=== PATIENT | female | born 1985 | race Caucasian/White ===

== ENCOUNTER 2022-09-29 11:24 | Emergency (ER) | payer OTHER ==
[~2022-09-29] VITALS: Ht 167.6 cm; Wt 97.5 kg
[2022-09-29] MEDS ORDERED: IBUPROFEN 400 MG TAB PO ONE (12:00)
[2022-09-29] MEDS ORDERED: MEDROL4 M2 PO (12:36)
[2022-09-29] MEDS ORDERED: IBUPROFEN600 MG PO (12:36)
[2022-09-29] MEDS ORDERED: ACETAMINOPHEN-1 EAC4 PO (12:36)
== END 2022-09-29 12:54 | disposition home or self-care (01) ==
LOC: ER 11:30
DX: M75.101 Unspecified rotator cuff tear or rupture of right shoulder, not specified as traumatic (principal); X50.1XXA Overexertion from prolonged static or awkward postures, initial encounter; Y92.89 Other specified places as the place of occurrence of the external cause; E11.9 Type 2 diabetes mellitus without complications
CPT/HCPCS: 99283